=== PATIENT | female | born 1950 | race Caucasian/White ===

== ENCOUNTER → 2017-03-17 | Outpatient (CLI) | payer MEDICARE ==
[~2017-03-17] MED LIST: **HUMALOG*100 UNIT/M; ALEVE220 M1 PO; CALTRATE 600 +1 EAC1 PO; CENTRUM SILVER1 EAC4 PO; DELTASONE1 MG PO; DELTASONE5 MG PO; DITROPAN5 MG PO; GABAPENTIN800 MG PO; LANTUS (IN100 UNIT/M SUB-Q; LASIX40 M1 PO; LEVOTHROID (S200 MCG PO; MAG-OX-400(241400 MG PO; PROTONIX40 MG PO; REQUIP2 MG PO; TOPROL XL25 MG PO; VASOTEC2.5 MG PO
== END ==
LOC: LGSMG 16:59
DX: N39.0 Urinary tract infection, site not specified (principal)

== ENCOUNTER → 2017-03-24 | Outpatient (CLI) | payer MEDICARE, OTHER | END | disposition disaster alternative care site (69) | LOC: GRAD 08:53 | DX: E11.65 Type 2 diabetes mellitus with hyperglycemia (principal); N28.9 Disorder of kidney and ureter, unspecified; R16.1 Splenomegaly, not elsewhere classified; Z98.890 Other specified postprocedural states ==

== ENCOUNTER → 2017-05-13 | Day surgery (SDC) | payer MEDICARE, OTHER ==
[~2017-05-13] VITALS: Ht 160 cm; Wt 94.0 kg
== END ==
LOC: GPOC 05-08 15:00 → GEND 07:10 → GPOC 07:30
PROC: 0D758ZZ Dilation of Esophagus, Via Natural or Artificial Opening Endoscopic (ICD-10-PCS; principal; 2017-05-13)
PROC: 0DB68ZX Excision of Stomach, Via Natural or Artificial Opening Endoscopic, Diagnostic (ICD-10-PCS; 2017-05-13)
DX: K22.2 Esophageal obstruction (principal); K44.9 Diaphragmatic hernia without obstruction or gangrene; K31.9 Disease of stomach and duodenum, unspecified; I10 Essential (primary) hypertension; E11.51 Type 2 diabetes mellitus with diabetic peripheral angiopathy without gangrene; E03.9 Hypothyroidism, unspecified; M19.90 Unspecified osteoarthritis, unspecified site; Z87.891 Personal history of nicotine dependence; Z90.49 Acquired absence of other specified parts of digestive tract; Z85.3 Personal history of malignant neoplasm of breast; Z88.0 Allergy status to penicillin; Z88.5 Allergy status to narcotic agent; Z88.8 Allergy status to other drugs, medicaments and biological substances; Z79.899 Other long term (current) drug therapy; Z98.890 Other specified postprocedural states; Z79.4 Long term (current) use of insulin
CPT/HCPCS: C1726; J2001; J7030

== ENCOUNTER → 2017-06-22 | Outpatient (CLI) | payer MEDICARE, OTHER | END | disposition disaster alternative care site (69) | LOC: GRAD 14:38 | DX: M79.606 Pain in leg, unspecified (principal); M71.38 Other bursal cyst, other site; M54.16 Radiculopathy, lumbar region; M54.18 Radiculopathy, sacral and sacrococcygeal region; D18.09 Hemangioma of other sites; M47.896 Other spondylosis, lumbar region ==